=== PATIENT | male | born 1950 | race Caucasian/White ===

== ENCOUNTER 2018-08-23 22:00 | Observation (INO) | payer MEDICARE, BC ==
[2018-08-23] MEDS ORDERED: NS 0.9% 1000 ML*IV.FLUID IV ONE (22:04)
[2018-08-23] MEDS ORDERED: Piperacillin/Tazobac ADVAN(*) 3.375 GM in NS 0.9% 100 ML* 100 ML IVPB ONE (22:05)
[2018-08-23 22:29] LABS: ABS Basophils 0 10^3/ul (0-0.2); ABS Eosinophils 0 10^3/ul (0-0.6); ABS Lymphocytes 0.5 10^3/ul (1.0-4.8); ABS Monocytes 0.6 10^3/ul (0-0.8); ABS Neutrophils 5.2 10^3/ul (1.5-7.7); ABS Nucleated RBC 0 10^3/ul; Eosinophil % 0.1 % (0-6); Hematocrit 42 % (42-52); Hemoglobin 14.5 g/dl (14.0-18.0); Lymphocyte % 7.7 % (25-47); Mean Corpuscular HGB Conc 35 g/dl (31-36); Mean Corpuscular Hemoglobin 30 pg (27-31); Mean Corpuscular Volume 86 fL (80-94); Mean Platelet Volume 7.7 um3 (7.4-10.4); Nucleated Red Blood Cells % 0.2; Platelet Count 197 10^3/ul (150-450); Red Blood Count 4.87 10^6/ul (4.00-5.40); Red Cell Distribution Width 13 % (10.5-15); White Blood Count 6.3 10^3/ul (3.5-10.8)
[2018-08-23 22:32] LABS: INR 1.1 (0.77-1.02)
[2018-08-23 22:44] LABS: EGFR Non-African American 62.9 (>60)
[2018-08-23] MEDS ORDERED: Cefepime 2 GM in Dextrose(*) 2 GM/50 ML BAG IV ONE (22:49)
--- NOTE | 2018-08-23 22:49 | ED ---
HPI Febrile Illness - HPI Summary HPI Summary: A 68 y/o M referred by Dr. Olsen, urology, presents to ED s/p trans-rectal biopsy on 08/11/18 with fever onset today. Tmax: 102.9 F. Pt was put on medications to reduce PSAs prior to biopsy. At bedside, pt states having difficulty starting a urine stream for past few days. Associated sx: urgency, fatigue, chills, diffuse rash. 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 Dr. Olsen called to review case prior to patient arrival in ED. - History of Current Complaint Chief Complaint: EDFever Time Seen by Provider: 08/23/18 22:04 Hx Obtained From: Patient, Family/Docking Pilot - , Medical Records Onset/Duration: Started Hours Ago, Atraumatic, Resolved Timing: Constant Current Severity: Mild Pain Intensity: 0 Pain Scale Used: 0-10 Numeric Alleviating Factors: OTC Medicine Associated Signs and Symptoms: Chills, Rash, Other: - pos: urinary hesitancy, urgency, fatigue, - Allergy/Home Medications Allergies/Adverse Reactions: Allergies Allergy/AdvReac Type Severity Reaction Status Date / Time cillins Allergy Hives Uncoded 08/23/18 22:06 PMH/Surg Hx/FS Hx/Imm Hx Previously Healthy: No Cardiovascular History: Reports: Hx Hypertension, Other Cardiovascular Problems/ Disorders - PACs Opthamlomology History: Denies: Hx Legally Blind EENT History: Denies: Hx Deafness Infectious Disease History: No Infectious Disease History: Denies: Traveled Outside the [place] in Last 30 Days - Family History Known Family History: Positive: Unknown - Social History Occupation: Retired Lives: With Family Alcohol Use: Weekly Hx Substance Use: No Smoking Status (MU): Former Smoker Review of Systems Positive: Fever, Chills, Fatigue Positive: urgency, other - urinary hesitation Positive: Rash All Other Systems Reviewed And Are Negative: Yes Physical Exam - Summary Physical Exam Summary: Appearance: Well-appearing, Well-nourished, lying in bed comfortably Skin: Warm, dry, blotchy rash on back and arms. Eyes: sclera anicteric, no conjunctival pallor ENT: mucous membranes moist, pharynx appears normal Neck: Supple, nontender Respiratory: Clear to auscultation, no signs of respiratory distress Cardiovascular: Normal S1, S2. No murmurs. Normal distal pulses in tibial and radial bilaterally. Abdomen: Soft, nontender, normal active bowel sounds present Musculoskeletal: Normal, Strength/ROM Intact Neurological: A&Ox3, awake and alert, mentation is normal, speech is fluent and appropriate Psychiatric: affect is normal, does not appear anxious or depressed Triage Information Reviewed: Yes Vital Signs On Initial Exam: Initial Vitals Temp Pulse Resp BP Pulse Ox 99.1 F 97 16 122/51 94 08/23/18 22:03 08/23/18 22:03 08/23/18 22:03 08/23/18 22:03 08/23/18 22:03 Vital Signs Reviewed: Yes Diagnostics - Vital Signs Vital Signs Temp Pulse Resp BP Pulse Ox 08/23/18 22:03 99.1 F 97 16 122/51 94 - Laboratory Lab Results: Lab Results 08/23/18 08/23/18 08/23/18 Range/Units 22:16 22:16 22:16 WBC 6.3 (3.5-10.8) 10^3/ul RBC 4.87 (4.00-5.40) 10^6/ul Hgb 14.5 (14.0-18.0) g/dl Hct 42 (42-52) % MCV 86 (80-94) fL MCH 30 (27-31) pg MCHC 35 (31-36) g/dl RDW 13 (10.5-15) % Plt Count 197 (150-450) 10^3/ul MPV 7.7 (7.4-10.4) um3 Neut % (Auto) 82.2 (38-83) % Lymph % (Auto) 7.7 L (25-47) % [place] % (Auto) 9.6 H (0-7) % Eos % (Auto) 0.1 (0-6) % Baso % (Auto) 0.4 (0-2) % Absolute Neuts (auto) 5.2 (1.5-7.7) 10^3/ul Absolute Lymphs (auto) 0.5 L (1.0-4.8) 10^3/ul Absolute Monos (auto) 0.6 (0-0.8) 10^3/ul Absolute Eos (auto) 0 (0-0.6) 10^3/ul Absolute Basos (auto) 0 (0-0.2) 10^3/ul Absolute Nucleated RBC 0 10^3/ul Nucleated RBC % 0.2 INR (Anticoag Therapy) 1.10 H (0.77-1.02) Sodium 132 L (135-145) mmol/L Potassium 3.6 (3.5-5.0) mmol/L Chloride 100 L (101-111) mmol/L Carbon Dioxide 24 (22-32) mmol/L Anion Gap 8 (2-11) mmol/L BUN 22 (6-24) mg/dL Creatinine 1.15 (0.67-1.17) mg/dL Est GFR ( Amer) 76.1 (>60) Est GFR (Non-Af Amer) 62.9 (>60) BUN/Creatinine Ratio 19.1 (8-20) Glucose 121 H (70-100) mg/dL Lactic Acid (0.5-2.0) mmol/L Calcium 8.8 (8.6-10.3) mg/dL Total Bilirubin 0.80 (0.2-1.0) mg/dL AST 28 (13-39) U/L ALT 22 (7-52) U/L Alkaline Phosphatase 67 (34-104) U/L Troponin I Pending Total Protein 7.2 (6.4-8.9) g/dL Albumin 4.2 (3.2-5.2) g/dL Globulin 3.0 (2-4) g/dL Albumin/Globulin Ratio 1.4 (1-3) 08/23/ Range/Units 22:16 WBC (3.5-10.8) 10^3/ul RBC (4.00-5.40) 10^6/ul Hgb (14.0-18.0) g/dl Hct (42-52) % MCV (80-94) fL MCH (27-31) pg MCHC (31-36) g/dl RDW (10.5-15) % Plt Count (150-450) 10^3/ul MPV (7.4-10.4) um3 Neut % (Auto) (38-83) % Lymph % (Auto) (25-47) % [place] % (Auto) (0-7) % Eos % (Auto) (0-6) % Baso % (Auto) (0-2) % Absolute Neuts (auto) (1.5-7.7) 10^3/ul Absolute Lymphs (auto) (1.0-4.8) 10^3/ul Absolute Monos (auto) (0-0.8) 10^3/ul Absolute Eos (auto) (0-0.6) 10^3/ul Absolute Basos (auto) (0-0.2) 10^3/ul Absolute Nucleated RBC 10^3/ul Nucleated RBC % INR (Anticoag Therapy) (0.77-1.02) Sodium (135-145) mmol/L Potassium (3.5-5.0) mmol/L Chloride (101-111) mmol/L Carbon Dioxide (22-32) mmol/L Anion Gap (2-11) mmol/L BUN (6-24) mg/dL Creatinine (0.67-1.17) mg/dL Est GFR ( Amer) (>60) Est GFR (Non-Af Amer) (>60) BUN/Creatinine Ratio (8-20) Glucose (70-100) mg/dL Lactic Acid 0.9 (0.5-2.0) mmol/L Calcium (8.6-10.3) mg/dL Total Bilirubin (0.2-1.0) mg/dL AST (13-39) U/L ALT (7-52) U/L Alkaline Phosphatase (34-104) U/L Troponin I Total Protein (6.4-8.9) g/dL Albumin (3.2-5.2) g/dL Globulin (2-4) g/dL Albumin/Globulin Ratio (1-3) Result Diagrams: 08/23/18 22:16 08/23/18 22:16 Lab Statement: Any lab studies that have been ordered have been reviewed, and results considered in the medical decision making process. Course/Dx - Course Course Of Treatment: Pt is a 68 y/o M under two weeks s/p trans-rectal biopsy presenting with fever, chills, urgency, urinary hesitation, fatigue and diffuse rash. Discussed case with Dr. Olsen prior to arrival. Discussed case with Dr. Lilly, hospitalist, who will accept pt for admission. - Diagnoses Provider Diagnoses: Fever, Prostatitis, Bacteremia - Provider Notifications Discussed Care Of Patient With: Miguel Lott - hospitalist Time Discussed With Above Provider: 23:43 Instructed by Provider To: Admit As Inpatient Discharge - Sign-Out/Discharge Documenting (check all that apply): Patient Departure - ADM - Discharge Plan Condition: Stable Disposition: ADMITTED TO [facility] - Billing Disposition and Condition Condition: STABLE Disposition: Admitted to [facility] - Attestation Statements Document Initiated by Scribe: Yes Documenting Scribe: Igor Ramirez Provider For Whom Tez is Documenting (Include Credential): Dr. Bryce Polo MD Scribe Attestation: IIgor, scribed for Dr. Bryce Polo MD on 08/24/18 at 0632. Scribe Documentation Reviewed: Yes Provider Attestation: The documentation as recorded by the Igor hines accurately reflects the service I personally performed and the decisions made by me, Dr. Bryce Polo MD
--- NOTE | 2018-08-23 23:58 | HP ---
H&P (Free Text) History and Physical: PCP: Jose Hunt MD Date/Time: 08/23/2018 2355 CC: fever HPI: Mr Kohli is a 68YO male HX HTN, HLD, VALENTINE, BPH who underwent a trans-rectal prostate BX which was reportedly benign 2 weeks ago. All was well until 2 days ago when he began developing dysuria and frequency associated with weakened urinary stream. Today he was more fatigued than usual and spiked a fever of 102.9F at home around 1999. He also reports sweats, rash on his L elbow, & subjective F/C. There has been no abdominal pain, pain with defecation, cough, congestion, headache, or other issues. He called Kelley Olsen MD urology who performed the BX and was advised to come [place] [facility] [place] and ABX out of concern for bacterial prostatitis. He denies sick contacts. 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 Father passed at 83 of "old age" with HX prostate CA. Sister is alive and healthy. ROS: as above, otherwise reviewed and all were negative vitals: Vital Signs Temp 37.3 C 08/23/18 22:03 Pulse 97 08/23/18 22:03 Resp 16 08/23/18 22:03 BP 122/51 08/23/18 22:03 Pulse Ox 94 08/23/18 22:03 Intake & Output 08/22/18 08/23/18 08/23/18 23:59 11:59 23:59 Weight 92.986 kg Constitutional: NAD, normally developed, overweight white male HEENM: atraumatic; sclera/conjunctiva: anicteric/clear; hearing: clinically intact; oropharynx: clear, mucosa moist Neck: soft tissue: no nuchal rigidity; thyroid: normal Pulmonary: clear to auscultation bilaterally, good aeration, no accessory muscle use CV: RR/RR, normal S1S2, no carotid bruit, no jugular venous distention, 2+ B DP/ PT, no edema Abdominal: soft, non-distended, non-tender, no rebound/guarding/rigidity, normoactive bowel sounds, no hepatosplenomegaly or masses, no costovertebral angle tenderness; prostate is significantly enlarged moreso of the R lobe however it is non-tender and firm (not boggy) Musculoskeletal: general: grossly intact, non-tender Integumental: erythematous serpinginous macular eruption L elbow Psychiatric orientation: AA&O to PPS affect: calm mood: pleasant eye contact: good content: reliable responses: timely insight: good Testing: Lab Results 08/23/18 08/23/18 08/23/18 Range/Units 22:16 22:16 22:16 WBC 6.3 (3.5-10.8) 10^3/ul RBC 4.87 (4.00-5.40) 10^6/ul Hgb 14.5 (14.0-18.0) g/dl Hct 42 (42-52) % MCV 86 (80-94) fL MCH 30 (27-31) pg MCHC 35 (31-36) g/dl RDW 13 (10.5-15) % Plt Count 197 (150-450) 10^3/ul MPV 7.7 (7.4-10.4) um3 Neut % (Auto) 82.2 (38-83) % Lymph % (Auto) 7.7 L (25-47) % [place] % (Auto) 9.6 H (0-7) % Eos % (Auto) 0.1 (0-6) % Baso % (Auto) 0.4 (0-2) % Absolute Neuts (auto) 5.2 (1.5-7.7) 10^3/ul Absolute Lymphs (auto) 0.5 L (1.0-4.8) 10^3/ul Absolute Monos (auto) 0.6 (0-0.8) 10^3/ul Absolute Eos (auto) 0 (0-0.6) 10^3/ul Absolute Basos (auto) 0 (0-0.2) 10^3/ul Absolute Nucleated RBC 0 10^3/ul Nucleated RBC % 0.2 INR (Anticoag Therapy) 1.10 H (0.77-1.02) Sodium 132 L (135-145) mmol/L Potassium 3.6 (3.5-5.0) mmol/L Chloride 100 L (101-111) mmol/L Carbon Dioxide 24 (22-32) mmol/L Anion Gap 8 (2-11) mmol/L BUN 22 (6-24) mg/dL Creatinine 1.15 (0.67-1.17) mg/dL Est GFR ( Amer) 76.1 (>60) Est GFR (Non-Af Amer) 62.9 (>60) BUN/Creatinine Ratio 19.1 (8-20) Glucose 121 H (70-100) mg/dL Lactic Acid (0.5-2.0) mmol/L Calcium 8.8 (8.6-10.3) mg/dL Total Bilirubin 0.80 (0.2-1.0) mg/dL AST 28 (13-39) U/L ALT 22 (7-52) U/L Alkaline Phosphatase 67 (34-104) U/L Troponin I 0.01 (<0.04) ng/mL Total Protein 7.2 (6.4-8.9) g/dL Albumin 4.2 (3.2-5.2) g/dL Globulin 3.0 (2-4) g/dL Albumin/Globulin Ratio 1.4 (1-3) 08/23/18 Range/Units 22:16 WBC (3.5-10.8) 10^3/ul RBC (4.00-5.40) 10^6/ul Hgb (14.0-18.0) g/dl Hct (42-52) % MCV (80-94) fL MCH (27-31) pg MCHC (31-36) g/dl RDW (10.5-15) % Plt Count (150-450) 10^3/ul MPV (7.4-10.4) um3 Neut % (Auto) (38-83) % Lymph % (Auto) (25-47) % [place] % (Auto) (0-7) % Eos % (Auto) (0-6) % Baso % (Auto) (0-2) % Absolute Neuts (auto) (1.5-7.7) 10^3/ul Absolute Lymphs (auto) (1.0-4.8) 10^3/ul Absolute Monos (auto) (0-0.8) 10^3/ul Absolute Eos (auto) (0-0.6) 10^3/ul Absolute Basos (auto) (0-0.2) 10^3/ul Absolute Nucleated RBC 10^3/ul Nucleated RBC % INR (Anticoag Therapy) (0.77-1.02) Sodium (135-145) mmol/L Potassium (3.5-5.0) mmol/L Chloride (101-111) mmol/L Carbon Dioxide (22-32) mmol/L Anion Gap (2-11) mmol/L BUN (6-24) mg/dL Creatinine (0.67-1.17) mg/dL Est GFR ( Amer) (>60) Est GFR (Non-Af Amer) (>60) BUN/Creatinine Ratio (8-20) Glucose (70-100) mg/dL Lactic Acid 0.9 (0.5-2.0) mmol/L Calcium (8.6-10.3) mg/dL Total Bilirubin (0.2-1.0) mg/dL AST (13-39) U/L ALT (7-52) U/L Alkaline Phosphatase (34-104) U/L Troponin I (<0.04) ng/mL Total Protein (6.4-8.9) g/dL Albumin (3.2-5.2) g/dL Globulin (2-4) g/dL Albumin/Globulin Ratio (1-3) Impression: 68M HX HTN, HLD, VALENTINE, & BPH presents with fever & malaise 2 weeks post prostatic BX DIAGNOSIS & PLAN Primary fever & malaise : suspect viral etiology given benign prostate exam and normal vitals/labs : obtain pCXR for completeness : IV cefepime : IVFs : blood CX : consult S Husseini, MD urology : supportive care non-specific rash : monitor Secondary HTN : continue HCTZ, telmisartan, & amlodipine HLD : continue fluvastatin VALENTINE : continue CPAP at 12 cm/H2O anxiety : continue escitalopram BPH : continue finasteride Admission Rational: observation for initiation of ABX for suspected post-BX prostatitis DVTp: SCDs Code Status: full HCP: , Haley
[2018-08-24] MEDS ORDERED: Melatonin 3 MG TAB PO PRN (00:21)
[2018-08-24] MEDS ORDERED: Acetaminophen TAB* 325 MG PO PRN (00:21)
[2018-08-24] MEDS ORDERED: Ondansetron ODT TAB* 4 MG PO PRN (00:21)
[2018-08-24] MEDS: NS 0.9% 1000 ML* 1,000 ML IV SCH (04:34)
[2018-08-24 06:49] LABS: Hematocrit 38 % (42-52); Mean Corpuscular HGB Conc 35 g/dl (31-36); Mean Corpuscular Hemoglobin 30 pg (27-31); Mean Corpuscular Volume 86 fL (80-94); Mean Platelet Volume 8.1 um3 (7.4-10.4); Platelet Count 161 10^3/ul (150-450); Red Blood Count 4.35 10^6/ul (4.00-5.40); Red Cell Distribution Width 13 % (10.5-15); White Blood Count 5.2 10^3/ul (3.5-10.8)
--- NOTE | 2018-08-24 08:09 | RAD ---
INDICATION: Fever and malaise COMPARISON: Chest x-ray December 29, 2009 TECHNIQUE: Single AP portable view of the chest was obtained. FINDINGS: Image quality is compromised due to the relative inferiority of a portable chest x-ray. The heart and mediastinum exhibit normal size and contour. The lungs are grossly clear. There is no evidence of a large pleural effusion. Visualized bones are normal for the patient's age. IMPRESSION: No radiographic evidence for acute cardiopulmonary abnormality on this portable chest x-ray.
[2018-08-24] MEDS: Docusate CAP* 100 MG PO SCH ×2 (09:05→21:51)
[2018-08-24] MEDS: Cefepime 1 GM in Dextrose(*) 1 GM/50 ML BAG IV SCH ×2 (09:50→23:26)
--- NOTE | 2018-08-24 17:29 | PN ---
Subjective Date of Service: 08/24/18 Interval History: Pt seen and examined. Meds and labs reviewed. CC: Low grade fever ROS: Denied BRADY/dizziness, Chills, N/V, CP, SOB, increased cough, sputum production, abd pain, diarrhea, constipation, dysuria, myalgias, arthralgias, throat pain, and new skin lesions. The rest of the 14 point ROS are unremarkable. PHYSICAL EXAM: GEN APPEARANCE: Awake, not in acute distress HEENT: NC/AT, PERRLA, moist oral mucosa, (-) throat erythema NECK: Soft, supple, (-) cervical LAD, (-)JVD HEART: S1S2 WNL, RRR, No MRG CHEST: CTA, BL, GAE, No W/R/R ABD: Soft, ND/NT, NABS 4x Q EXT: No C/C/E SKIN: Warm to touch PSYCH: No active psychosis, hallucinations, depression, SI/HI Objective Active Medications: Acetaminophen (Tylenol Tab*) 650 mg PO Q6H PRN PRN Reason: FEVER/PAIN Last Admin: 08/24/18 13:54 Dose: 650 mg Amlodipine Besylate (Norvasc Tab*) 10 mg PO DAILY CASSANDRA Docusate Sodium (Colace Cap*) 200 mg PO BID [facility] Last Admin: 08/24/18 09:05 Dose: Not Given Escitalopram Oxalate (Lexapro (Nf)) 10 mg PO DAILY CASSANDRA Finasteride (Proscar Tab*) 5 mg PO DAILY [facility] Cefepime HCl (Maxipime 1 Gm In Dextrose Duplex (*)) 1 gm in 50 mls @ 100 mls/ hr IV Q12H [facility] Last Admin: 08/24/18 09:50 Dose: 100 mls/hr Sodium Chloride (Ns 0.9% 1000 Ml*) 1,000 mls @ 50 mls/hr IV PER RATE [facility] Last Admin: 08/24/18 04:34 Dose: 50 mls/hr Melatonin (Melatonin) 3 mg PO BEDTIME PRN; Protocol PRN Reason: Sleep Ondansetron HCl (Zofran Odt Tab*) 4 mg PO Q6H PRN PRN Reason: n/v Vital Signs - 8 hr 08/24/18 08/24/18 13:22 15:41 Temperature 101.8 F 98.3 F Pulse Rate 83 68 Respiratory 20 20 Rate Blood Pressure 133/53 119/49 (mmHg) O2 Sat by Pulse 96 95 Oximetry Oxygen Devices in Use Now: None Result Diagrams: 08/24/18 06:24 08/23/18 22:16 Additional Lab and Data: Lab Results 08/23/18 08/23/18 08/23/18 Range/Units 22:16 22:16 22:16 WBC 6.3 (3.5-10.8) 10^3/ul RBC 4.87 (4.00-5.40) 10^6/ul Hgb 14.5 (14.0-18.0) g/dl Hct 42 (42-52) % MCV 86 (80-94) fL MCH 30 (27-31) pg MCHC 35 (31-36) g/dl RDW 13 (10.5-15) % Plt Count 197 (150-450) 10^3/ul MPV 7.7 (7.4-10.4) um3 Neut % (Auto) 82.2 (38-83) % Lymph % (Auto) 7.7 L (25-47) % [place] % (Auto) 9.6 H (0-7) % Eos % (Auto) 0.1 (0-6) % Baso % (Auto) 0.4 (0-2) % Absolute Neuts (auto) 5.2 (1.5-7.7) 10^3/ul Absolute Lymphs (auto) 0.5 L (1.0-4.8) 10^3/ul Absolute Monos (auto) 0.6 (0-0.8) 10^3/ul Absolute Eos (auto) 0 (0-0.6) 10^3/ul Absolute Basos (auto) 0 (0-0.2) 10^3/ul Absolute Nucleated RBC 0 10^3/ul Nucleated RBC % 0.2 INR (Anticoag Therapy) 1.10 H (0.77-1.02) Sodium 132 L (135-145) mmol/L Potassium 3.6 (3.5-5.0) mmol/L Chloride 100 L (101-111) mmol/L Carbon Dioxide 24 (22-32) mmol/L Anion Gap 8 (2-11) mmol/L BUN 22 (6-24) mg/dL Creatinine 1.15 (0.67-1.17) mg/dL Est GFR ( Amer) 76.1 (>60) Est GFR (Non-Af Amer) 62.9 (>60) BUN/Creatinine Ratio 19.1 (8-20) Glucose 121 H (70-100) mg/dL Lactic Acid (0.5-2.0) mmol/L Calcium 8.8 (8.6-10.3) mg/dL Total Bilirubin 0.80 (0.2-1.0) mg/dL AST 28 (13-39) U/L ALT 22 (7-52) U/L Alkaline Phosphatase 67 (34-104) U/L Troponin I Pending Total Protein 7.2 (6.4-8.9) g/dL Albumin 4.2 (3.2-5.2) g/dL Globulin 3.0 (2-4) g/dL Albumin/Globulin Ratio 1.4 (1-3) // Range/Units 22:16 WBC (3.5-10.8) 10^3/ul RBC (4.00-5.40) 10^6/ul Hgb (14.0-18.0) g/dl Hct (42-52) % MCV (80-94) fL MCH (27-31) pg MCHC (31-36) g/dl RDW (10.5-15) % Plt Count (150-450) 10^3/ul MPV (7.4-10.4) um3 Neut % (Auto) (38-83) % Lymph % (Auto) (25-47) % [place] % (Auto) (0-7) % Eos % (Auto) (0-6) % Baso % (Auto) (0-2) % Absolute Neuts (auto) (1.5-7.7) 10^3/ul Absolute Lymphs (auto) (1.0-4.8) 10^3/ul Absolute Monos (auto) (0-0.8) 10^3/ul Absolute Eos (auto) (0-0.6) 10^3/ul Absolute Basos (auto) (0-0.2) 10^3/ul Absolute Nucleated RBC 10^3/ul Nucleated RBC % INR (Anticoag Therapy) (0.77-1.02) Sodium (135-145) mmol/L Potassium (3.5-5.0) mmol/L Chloride (101-111) mmol/L Carbon Dioxide (22-32) mmol/L Anion Gap (2-11) mmol/L BUN (6-24) mg/dL Creatinine (0.67-1.17) mg/dL Est GFR ( Amer) (>60) Est GFR (Non-Af Amer) (>60) BUN/Creatinine Ratio (8-20) Glucose (70-100) mg/dL Lactic Acid 0.9 (0.5-2.0) mmol/L Calcium (8.6-10.3) mg/dL Total Bilirubin (0.2-1.0) mg/dL AST (13-39) U/L ALT (7-52) U/L Alkaline Phosphatase (34-104) U/L Troponin I Total Protein (6.4-8.9) g/dL Albumin (3.2-5.2) g/dL Globulin (2-4) g/dL Albumin/Globulin Ratio (1-3) Microbiology and Other Data: Microbiology 08/24/18 01:06 Stool Occult Blood (DOUGLAS) - Final Stool Assess/Plan/Problems-Billing Assessment: - Patient Problems (1) Fever Current Visit: Yes Status: Acute Code(s): R50.9 - FEVER, UNSPECIFIED SNOMED Code(s): 303413640 Comment: -Possible UTI vs prostatitis post Transrectal prostate biopsy -Unfortunately, pt received IV Abx prior to collection of U/A -D/W Dr. Roberts and will await further input -Will await further input from Dr. Olsen -Will await results from blood and urine Cx (2) HTN (hypertension) Current Visit: Yes Status: Acute Code(s): I10 - ESSENTIAL (PRIMARY) HYPERTENSION SNOMED Code(s): 96313223 Comment: -Will restart Amlodipine in AM -Hold off on Telmisartan and HCTZ given SBP in low one-teens (3) VALENTINE (obstructive sleep apnea) Current Visit: Yes Status: Acute Code(s): G47.33 - OBSTRUCTIVE SLEEP APNEA ( ADULT) (PEDIATRIC) SNOMED Code(s): 84584690 Comment: -Continue CPAP (4) Anxiety Current Visit: Yes Status: Acute Code(s): F41.9 - ANXIETY DISORDER, UNSPECIFIED SNOMED Code(s): 89658222 Comment: -Will place back on Lexapro (5) BPH (benign prostatic hyperplasia) Current Visit: Yes Status: Acute Code(s): N40.0 - BENIGN PROSTATIC HYPERPLASIA WITHOUT LOWER URINRY TRACT SYMP SNOMED Code(s): 288310660 Comment: -Will place pt on Finasteride (6) DVT prophylaxis Current Visit: Yes Status: Acute Code(s): DST2208 - SNOMED Code(s): 286029277 Comment: -Continue SCDs Status and Disposition: -As above
[2018-08-25] MEDS: NS 0.9% 1000 ML* 1,000 ML IV SCH (00:41)
[2018-08-25 03:05] LABS: Urine Red Blood Cell 2+(6-10/hpf) (Absent); Urine White Blood Cell Trace(0-5/hpf) (Absent)
[2018-08-25 03:14] LABS: Urine Color Colorless
[2018-08-25 03:15] LABS: Urine Appearance Clear; Urine Blood 1+ (Negative); Urine Ketones Negative (Negative); Urine Protein 1+(30 mg/dL) (Negative); Urine Urobilinogen N (Negative)
[2018-08-25] MEDS: Docusate CAP* 100 MG PO SCH (08:48)
[2018-08-25] MEDS ORDERED: CMC:Escitalopram (NF) 10 MG TAB PO SCH (09:00)
[2018-08-25] MEDS ORDERED: Finasteride TAB* 5 MG PO SCH (09:00)
[2018-08-25] MEDS ORDERED: amLODIPine TAB* 5 MG PO SCH (09:00)
[2018-08-25 10:20] LABS: ABS Basophils 0 10^3/ul (0-0.2); ABS Eosinophils 0.1 10^3/ul (0-0.6); ABS Monocytes 0.6 10^3/ul (0-0.8); ABS Neutrophils 2.8 10^3/ul (1.5-7.7); ABS Nucleated RBC 0 10^3/ul; Eosinophil % 2.2 % (0-6); Hematocrit 38 % (42-52); Mean Corpuscular HGB Conc 34 g/dl (31-36); Mean Corpuscular Hemoglobin 30 pg (27-31); Mean Corpuscular Volume 86 fL (80-94); Mean Platelet Volume 8.1 um3 (7.4-10.4); Nucleated Red Blood Cells % 0.2; Platelet Count 147 10^3/ul (150-450); Red Blood Count 4.41 10^6/ul (4.00-5.40); Red Cell Distribution Width 13 % (10.5-15); White Blood Count 4.5 10^3/ul (3.5-10.8)
[2018-08-25 10:38] LABS: EGFR Non-African American 89.1 (>60)
[2018-08-25] MEDS ORDERED: Cefepime(*) 1 GM in NS 0.9% 50 ML* 50 ML IVPB SCH (11:00)
[2018-08-25 17:23] VITALS: BP 126/54
[2018-08-25] MEDS ORDERED: Ciprofloxacin TAB* 500 MG PO SCH (21:00)
--- NOTE | 2018-08-25 21:44 | CONS ---
CONSULTATION REPORT: DATE OF CONSULT: 08/25/18 REQUESTING PHYSICIAN: Dr. Gardner. CONSULTING SERVICE: Infectious Disease. REASON FOR CONSULT: Fever. IMPRESSION: 1. Fever on 08/23/18 in the setting of increased urinary urgency and frequency. He had blood cultures here that are negative. A urinalysis obtained after 2 days of antibiotics shows blood, no white cells. Culture was unable to be obtained before antibiotics. He could have had a flare of his chronic prostatitis, though with the fever that seems a little bit less likely. The brief duration of symptoms seems less typical for acute prostatitis as well. Timing 2 weeks after prostate biopsy seems not likely to be biopsy related given the duration of time that elapsed. He does have contact with WARSTUFF. This time of the year, the Enterovirus is always a consideration given that he did have a little bit of rash as well. That would be self-limited. He feels great. His other workup so far is negative. 2. Benign prostatic hypertrophy, status post recent prostate biopsy. 3. PENICILLIN allergy, caused hives. RECOMMENDATIONS: Ciprofloxacin 500 mg twice a day for 5 more days to cover urinary pathogens. He will call if he has return of fever. HISTORY OF PRESENT ILLNESS: This is a 68-year-old man admitted with fever and urinary urgency. It came on the day of 08/23/18. He has had a prostate biopsy about 2 weeks before and so he contacted Dr. Olsen, who recommended to come to the hospital. He had a white count of 6000. He was febrile to 38.3. He was normotensive. Started on fluids and cefepime. Blood cultures were taken. The urine sample was not obtained until yesterday, which showed blood. His urgency and frequency are resolved as is his fever. Interestingly, he did also have a rash on his forearms, which has come and gone and returned again, but now it is gone again. He has not had this happened to him in the past. He is eating well, moving his bowels. No urinary symptoms. He feels great, interested in going home. PAST MEDICAL HISTORY: 1. Hypertension. 2. Hyperlipidemia. 3. Obstructive sleep apnea. 4. Benign prostatic hypertrophy. PAST SURGICAL HISTORY: Status post right inguinal hernia repair. ALLERGIES: PENICILLIN caused hives. MEDICATIONS: 1. Tylenol. 2. Amlodipine. 3. Cefepime 1 g IV every 12 hours. 4. Lexapro. 5. Finasteride. 6. Zofran as needed. 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 He is a nonsmoker. FAMILY HISTORY: Mother at 86 from a stroke. Father at 83 from old age. REVIEW OF SYSTEMS: All negative to a 14-point review of systems except as noted above in the history of present illness. PHYSICAL EXAM: Vital Signs: Temperature of 37, heart rate 60, respiratory rate 18, blood pressure 127/55, oxygen saturation 97% on room air. In general, he is awake, not in distress. Neurologic: He is oriented x3. Follows all commands. HEENT: There is no conjunctival hemorrhage. Heart is regular rate and rhythm without murmurs, rubs, or gallops. Lungs are clear to auscultation bilaterally. Abdomen: Soft, nontender, nondistended. There are bowel sounds present. Skin: There is no rash or splinter hemorrhage. Musculoskeletal: There is no spine tenderness to palpation. LABORATORY DATA: Creatinine 0.8. White blood cell count 4, hemoglobin 13, platelets 147. Please see impressions and recommendations as outlined above, which I have discussed with Dr. Gardner. Thanks for asking me to see Mr. Kohli in consultation. [id number]/[facility] #: [id number] RAFAEL
--- NOTE | 2018-08-26 06:24 | DS ---
CC: Dr. Lott; Bryce Polo MD; Héctor Olsen MD; Lewis oRberts MD; Steven Hunt MD * DISCHARGE SUMMARY: DATE OF ADMISSION: 08/23/18 DATE OF DISCHARGE: 08/25/18 DISCHARGE DIAGNOSES: 1. Low grade fever likely secondary to urinary tract infection versus prostatitis, status post transrectal prostate biopsy. 2. Hypertension, well controlled. 3. Obstructive sleep apnea. 4. Anxiety. 5. Benign prostatic hypertrophy. DISCHARGE MEDICATIONS: 1. Tylenol 650 mg p.o. q.6 p.r.n. 2. Amlodipine 10 mg p.o. daily. 3. Ciprofloxacin 500 mg p.o. b.i.d. for 5 more days. 4. Acidophilus capsule 1 capsule for 8 days. 5. Melatonin 3 mg p.o. q.h.s. 6. Escitalopram 10 mg p.o. daily. 7. Finasteride 5 mg p.o. daily. 8. Fluvastatin 20 mg p.o. daily. HISTORY OF PRESENT ILLNESS/HOSPITAL COURSE: The patient is a 68-year-old gentleman with history of hypertension, VALENTINE, and BPH, who underwent a recent transrectal prostate biopsy 2 weeks prior to admission. He was in his usual state of health until 2 days prior to admission when he began developing dysuria and frequency associated with a weakened urinary stream. The day of his admission, he has been having some easy fatigability and a fever of 102.9 at home accompanied by diaphoresis, possible rash in his left elbow. He then subsequently called Dr. Olsen who then advised that the patient be evaluated in the ED for possible admission and IV antibiotic management. He was admitted for observation stay and had been placed on cefepime after blood cultures and urine cultures were done. Unfortunately, he had been given antibiotics already prior to the urinalysis being drawn for subsequent reflex culture. The results of his blood cultures remained negative for 1 day prior to his discharge and he appears clinically well. In addition, he has been seen and followed by both doctors, Dr. Olsen as well as Dr. Roberts, who recommended to change his antibiotic to ciprofloxacin 500 mg p.o. b.i.d. for 5 more days. The patient appears clinically well and hemodynamically stable and wants to go home. The patient had been advised to follow up and/or call his PCP within 3 days postdischarge, and he had been reminded that his telmisartan as well as his HCTZ has been withheld given he is well controlled just with amlodipine alone at this time and he will need to touch base with his primary care physician to see whether these medications should be represcribed once the above infectious concern due to either UTI or possible prostatitis status post recent transrectal biopsy has resolved. It is possible that his BP would start increasing once the infectious process is fully addresses, hence we will defer this decision with his primary care physician. He had been advised to follow up and call his primary care physician within 3 days post-discharge. He had been advised that if his symptoms resume or develop new ones or feel unwell for any reasons, call his primary care physician, and if his primary care physician cannot entertain him due to scheduling issues, he will know to call [facility] if the issue is non-emergent. He was advised to call my office regarding any questions, concerns or further clarifications regarding his discharge plans and/or prescriptions and to take his medications as prescribed. REVIEW OF SYSTEMS: The patient denied any recent headaches, dizziness, fevers, chills, nausea, vomiting, chest pain, shortness of breath, increased cough or sputum production, abdominal pain, diarrhea, constipation, pain, and/or increased frequency on urination, myalgias, arthralgias, throat pain or new skin lesions. The rest of the 14-point review of systems are otherwise unremarkable. PHYSICAL EXAMINATION: Shows the most recent vital signs of records with blood pressure of 127/55 from 137/57, temperature of 98.4 degrees Fahrenheit, 64 beats per minute heart rate, 18 per minute respiratory rate, saturating at 97% on room air. General Appearance: The patient is awake, alert, and oriented x3 , not in acute distress. HEENT: Normocephalic, atraumatic. PERRLA. Extraocular muscles intact. Negative for icterus. Moist oral mucosa. Negative throat erythema. Neck is soft and supple with no cervical lymphadenopathy. No JVD. Heart: S1 and S2 within normal limits. Regular rate and rhythm. No murmurs, rubs or gallops. Chest: Clear to auscultation bilaterally. Good air entry. No wheezes, rales or rhonchi. Abdomen is soft, nondistended, nontender. Normoactive bowel sounds x4 quadrants. Extremities: No cyanosis, clubbing or edema. Psychiatric: No active psychosis, depression, suicidal or homicidal ideation. Skin is warm to touch. TIME SPENT: The total time spent evaluating the patient, reviewing pertinent data, and appropriate documentation is 40 minutes. [id number]/CPS #: [id number] MTDD
== END 2018-08-25 17:17 | disposition home or self-care (01) ==
LOC: ED 22:00 → MEDTELE 23:57
PROVIDERS: ADMIT Hospitalist; ATTEND Student in an Organized Health Care Education/Training Program
DX: R50.9 Fever, unspecified (principal); I10 Essential (primary) hypertension; R21 Rash and other nonspecific skin eruption; R53.83 Other fatigue; Z87.891 Personal history of nicotine dependence; G47.33 Obstructive sleep apnea (adult) (pediatric); N40.0 Benign prostatic hyperplasia without lower urinary tract symptoms; Z88.0 Allergy status to penicillin
CPT/HCPCS: 36415; 71045; 80053; 81003; 81015; 82270; 83605; 83735; 84100; 84484; 85025; 85027; 85610; 87040; 87086; 96361; 96365; 96366; 96374; 96376; 99284; A9270-GY; G0378; J0692

== ENCOUNTER 2019-10-06 07:02 | Emergency (ER) | payer MEDICARE, BC ==
[2019-10-06 07:18] VITALS: BP 151/65
--- NOTE | 2019-10-06 07:36 | UC ---
Respiratory Complaint HPI - HPI Summary HPI Summary: 5 DAYS OF COLD SYMPTOMS INCLUDING COUGH, CONGESTION, FATIGUE. PATIENT FEELS LIKE IT IS MOVING INTO HIS CHEST. NO FEVER, NAUSEA/VOMITING. - History of Current Complaint Chief Complaint: UCRespiratory Stated Complaint: chest CONGESTION Time Seen by Provider: 10/06/19 07:22 Hx Obtained From: Patient Onset/Duration: Gradual Onset, Lasting Days, Still Present Timing: Constant Severity Initially: Moderate Severity Currently: Moderate Pain Intensity: 0 Pain Scale Used: 0-10 Numeric Character: Cough: Nonproductive Aggravating Factors: Nothing Alleviating Factors: Nothing Associated Signs And Symptoms: Positive: URI, Nasal Congestion. Negative: Fever - Allergies/Home Medications Allergies/Adverse Reactions: Allergies Allergy/AdvReac Type Severity Reaction Status Date / Time cillins Allergy Hives Uncoded 10/06/19 07:10 Home Medications: Home Medications Hydrochlorothiazide TAB* [Hydrodiuril TAB*] 12.5 mg PO DAILY 10/06/19 [History Confirmed 10/06/19] PMH/Surg Hx/FS Hx/Imm Hx Endocrine History: Dyslipidemia Cardiovascular History: Hypertension - Surgical History Surgical History: Yes Surgery Procedure, Year, and Place: hernia 2013 - Family History Known Family History: Positive: Unknown - Social History Alcohol Use: Weekly Alcohol Amount: 2 drinks per week Substance Use Type: None Smoking Status (MU): Former Smoker Review of Systems All Other Systems Reviewed And Are Negative: Yes Constitutional: Positive: Fatigue ENT: Positive: Nasal Discharge, Sinus Congestion Respiratory: Positive: Cough Cardiovascular: Positive: Negative Gastrointestinal: Positive: Negative Physical Exam Triage Information Reviewed: Yes Appearance: Well-Appearing, No Pain Distress, Well-Nourished Vital Signs: Initial Vital Signs Temp 98.8 F 10/06/19 07:14 Pulse 79 10/06/19 07:14 Resp 18 10/06/19 07:14 BP 151/65 10/06/19 07:14 Pulse Ox 96 10/06/19 07:14 Vital Signs Reviewed: Yes Eyes: Positive: Conjunctiva Clear ENT: Positive: Hearing grossly normal, Pharynx normal, TMs normal Neck: Positive: Supple, Nontender, No Lymphadenopathy Respiratory Exam: Normal Cardiovascular Exam: Normal Abdomen Description: Positive: Soft Musculoskeletal: Positive: No Edema Neurological: Positive: Alert Psychological: Positive: Age Appropriate Behavior Skin: Negative: Rashes Respiratory Course/Dx - Differential Dx/Diagnosis Provider Diagnosis: Acute bronchitis Discharge ED - Sign-Out/Discharge Documenting (check all that apply): Patient Departure All imaging exams completed and their final reports reviewed: No Studies - Discharge Plan Condition: Stable Disposition: HOME Prescriptions: Azithromycin 500 mg PO DAILY #5 tablet predniSONE TAB* [Deltasone 20 MG TAB*] 40 mg PO DAILY #10 tab Patient Education Materials: Acute Bronchitis (ED) Referrals: Steven Hunt MD [Primary Care Provider] - If Needed Additional Instructions: YOUR SYMPTOMS ARE LIKELY VIRALLY MEDIATED AND SHOULD RESOLVE ON THEIR OWN WITH TIME. NO INDICATION FOR ANTIBIOTICS AT PRESENT BUT IF YOUR SYMPTOMS CONTINUE TO PROGRESS WITHOUT ANY IMPROVEMENT OVER THE NEXT SEVERAL DAYS GO AHEAD AND FILL THE RX FOR AZITHROMYCIN. IF YOU START THE MEDICINE BE SURE TO TAKE IT FOR THE FULL COURSE. REST, HYDRATE, OTC MEDS NEEDED. WILL ALSO TREAT WITH PREDNISONE TO HELP WITH AIRWAY INFLAMMATION. SEEK FOLLOW-UP WITH YOUR PCP IF YOU ARE NOT IMPROVING OVER THE NEXT 1-2 WEEKS. USE OTC AFRIN FOR NASAL CONGESTION. 2 SPRAYS IN EACH NOSTRIL TWICE DAILY NEEDED. DO NOT USE FOR MORE THAN 3-4 DAYS IN A ROW TO PREVENT DEVELOPING REBOUND CONGESTION. - Billing Disposition and Condition Condition: STABLE Disposition: Home
== END 2019-10-06 08:00 | disposition home or self-care (01) ==
LOC: UCEAST 07:02
DX: J20.9 Acute bronchitis, unspecified (principal); J06.9 Acute upper respiratory infection, unspecified; R09.81 Nasal congestion; I10 Essential (primary) hypertension; Z88.0 Allergy status to penicillin; Z87.891 Personal history of nicotine dependence
CPT/HCPCS: 99212; G0463